=== PATIENT | female | born 1980 | race Caucasian/White ===

== ENCOUNTER 2023-05-20 09:17 | Emergency (ER) | payer SELFPAY ==
[~2023-05-20] VITALS: Ht 162.6 cm; Wt 152.2 kg
[~2023-05-20 09:17] MED LIST: BACTROBAN TOP; CELEBREX100 M1 PO; CHERATUSSIN PO; CYCLOBENZAPRINE10 MG PO; DOXY-CAPS100 MG PO; IVERMECTIN3 MG PO; MEDDOSEPAK PO; OMEPRAZOLE DR40 MG; ONDANSETRON4 MG PO; OXYCOD-APAP1 TA1 PO; TRIAMCINOLON0.11 EX; VENLAFAXINE HCL75 M1 PO
[2023-05-20 09:27] VITALS: BP 136/88
[2023-05-20 09:30] VITALS: BP 120/76
[2023-05-20 10:00] VITALS: BP 107/85
[2023-05-20 11:24] VITALS: BP 128/68
[2023-05-20] MEDS ORDERED: PREDNISONE20 MG PO (11:29)
[2023-05-20] MEDS ORDERED: DOXYCYCLINE100 MG PO (11:29)
== END 2023-05-20 11:38 | disposition home or self-care (01) | DRG 192 ==
LOC: ED 09:17
DX: J44.1 Chronic obstructive pulmonary disease with (acute) exacerbation (principal); Z20.822 Contact with and (suspected) exposure to COVID-19

== ENCOUNTER 2023-11-15 15:05 | Emergency (ER) | payer SELFPAY ==
[~2023-11-15] VITALS: Ht 162.6 cm; Wt 158.0 kg
[~2023-11-15 15:05] MED LIST changes: +DOXYCYCLINE100 MG PO; +NAPROXEN500 MG PO; +PREDNISONE20 MG PO
[2023-11-15 15:27] VITALS: BP 137/103
[2023-11-15] MEDS ORDERED: guaiFENesin-CODEINE 200-20 MG/10 ML UDC PO ONE (16:15)
[2023-11-15] MEDS ORDERED: AMOXICILLIN500 M2 PO (17:36)
[2023-11-15 17:37] VITALS: BP 137/103
== END 2023-11-15 18:14 | disposition home or self-care (01) | DRG 192 ==
LOC: ED 15:05
DX: J41.8 Mixed simple and mucopurulent chronic bronchitis (principal); F17.200 Nicotine dependence, unspecified, uncomplicated; Z20.822 Contact with and (suspected) exposure to COVID-19

== ENCOUNTER 2024-03-22 00:54 | Emergency (ER) | payer SELFPAY ==
[~2024-03-22] VITALS: Ht 162.6 cm; Wt 165.0 kg
[~2024-03-22 00:54] MED LIST changes: +AMOXICILLIN500 M2 PO; +MELOXICAM7.5 MG PO; +METHOCARBAMOL500 MG PO
[2024-03-22 01:06] VITALS: BP 181/113
[2024-03-22] MEDS ORDERED: PROMETHAZINE HCL 25 MG/ML AMP IV ONE (01:10)
[2024-03-22] MEDS ORDERED: SODIUM CHLORIDE 0.9% 1,000 ML IV ONE (01:10)
[2024-03-22] MEDS ORDERED: KETOROLAC TROMETHAMINE 30 MG/ML SDV IV ONE (01:10)
[2024-03-22 01:18] VITALS: BP 136/89
[2024-03-22 01:33] LABS: BASO% 0.2 % (0-3); EOS% 2.3 % (0-8); HEMATOCRIT 43.2 % (37.0-47.0); HEMOGLOBIN 13.5 g/dl (12.0-16.0); IMMATURE GRANULOCYTES 0.8 % (0.0-5.0); LYMPH% 11.1 % (15-41); MEAN CELL VOLUME 92.3 fL CALC (80.0-100.0); MEAN CORPUSCULAR HGB 28.8 pG CALC (26.0-32.0); MEAN CORPUSCULAR HGB CONC 31.3 g/dL CAL (32.0-36.0); MONO% 3.4 % (2-13); NEUT# 11.13 thou/uL (2.00-7.15); NEUT% 82.2 % (42-76); RED BLOOD COUNT 4.68 mill/uL (4.20-5.60); RED CELL DISTRI WIDTH 12.9 % (11.5-15.5)
[2024-03-22 01:46] LABS: ALBUMIN 4.1 g/dL (3.2-5.0); ALKALINE PHOSPHATASE 98 u/l (38-126); ANION GAP 10 (6-22 (CALC)); BUN 14 mg/dL (7-17); BUN/CREATININE RATIO 24 (12-20 (CALC)); CARBON DIOXIDE 26 mmol/l (22-30); CHLORIDE 106 mmol/l (95-108); CREATININE 0.6 mg/dL (0.5-1.0); ESTIMATED GFR 114 ML/MIN (>=90 (CALC)); LIPASE 48 u/l (23-300); MAGNESIUM 1.5 mg/dL (1.6-2.3); POTASSIUM 4.5 mmol/l (3.5-5.1); SODIUM 137 mmol/l (137-146)
[2024-03-22 01:53] LABS: BILIRUBIN, TOTAL 0.6 mg/dL (0.02-1.3); SGOT/AST 102 u/l (14-36); TOTAL PROTEIN 8.5 g/dL (6.3-8.2)
[2024-03-22 02:01] LABS: ACT PARTIAL THROMBO TIME 25.1 SECONDS (20.0-32.5)
[2024-03-22 02:12] LABS: D-DIMER 0.65 mg/L (0.19-0.60)
[2024-03-22 02:19] LABS: PROTHROMBIN TIME 9.5 SECONDS (9.0-12.5)
[2024-03-22] MEDS ORDERED: SODIUM CHLORIDE 0.9% 1,000 ML IV STA (02:56)
[2024-03-22 03:19] LABS: URINE BLOOD DIPSTICK Large (NEGATIVE); URINE GLUCOSE - DIPSTICK 100 mg/dL (NEGATIVE); URINE KETONE Negative (NEGATIVE); URINE LEUK ESTERASE Negative (NEGATIVE); URINE NITRITE - DIPSTICK Negative (Negative); URINE PH 5.5 (4.5-8.0); URINE PROTEIN - DIPSTICK 100 mg/dL (NEG-TRACE); URINE SPECIFIC GRAVITY 1.025; URINE UROBILINOGEN - DIPSTICK 0.2 E.U./dL (0.2)
[2024-03-22 03:22] LABS: URINE COLOR Yellow
[2024-03-22 03:27] LABS: URINE RBC 25-50 RBC/hpf (0-5); URINE SQUAMOUS EPITHELIAL CELL FEW EPI/hpf (0-FEW); URINE WBC 0-2 WBC/hpf (0-5)
[2024-03-22] MEDS ORDERED: MORPHINE SULFATE 4 MG/ML VIAL IV STA (03:35)
[2024-03-22] MEDS ORDERED: PROCHLORPERAZINE EDISYLATE 10 MG/2 ML SDV IV ONE (03:40)
[2024-03-22 04:05] VITALS: BP 128/94
[2024-03-22] MEDS ORDERED: OMNICEF300 MG PO (07:20)
[2024-03-22] MEDS ORDERED: NAPROXEN500 MG PO (07:20)
[2024-03-22] MEDS ORDERED: MAG-G500 MG PO (07:22)
[2024-03-22 07:29] VITALS: BP 128/94
== END 2024-03-22 07:38 | disposition home or self-care (01) | DRG 392 ==
LOC: ED 00:54
PROVIDERS: Family Medicine
DX: R10.12 Left upper quadrant pain (principal); R31.9 Hematuria, unspecified; E83.42 Hypomagnesemia; F17.200 Nicotine dependence, unspecified, uncomplicated; Z20.822 Contact with and (suspected) exposure to COVID-19
CPT/HCPCS: Q9967